=== PATIENT | female | born 1980 | race Caucasian/White ===

== ENCOUNTER 2025-04-22 18:40 | Emergency (ER) | payer MEDICAID ==
[~2025-04-22] VITALS: Ht 167.6 cm; Wt 88.0 kg
[2025-04-22 18:43] VITALS: O2SAT 100
[2025-04-22] MEDS: DIPHENHYDRAMINE 50MG/ML VIAL IV ONE (19:30)
[2025-04-22] MEDS: ONDANSETRON HCL 4MG/2ML INJ IV ONE (19:30)
[2025-04-22] MEDS: SODIUM CHLORIDE 0.9% 1,000 ML IV ONE (19:30)
[2025-04-22] MEDS: KETOROLAC 15MG/ML VIAL IV ONE (19:30)
[2025-04-22 20:22] LABS: BASOPHILS % 0.4 % (0.0-2.0); EOSINOPHILS % 0.3 % (0.0-5.0); HEMATOCRIT. 38.9 % (36.0-48.0); HEMOGLOBIN. 13.1 g/dL (12.0-16.0); LYMPHOCYTES % 17.4 % (20.0-50.0); MEAN PLATELET VOLUME 9.1 fl (7.4-10.4); MONOCYTES % 7.6 % (2.0-8.0); NEUTROPHILS % 74.3 % (40.0-76.0); PLATELET 231 x1000/uL (130-400); RED BLOOD CELL COUNT 4.66 mill/uL (4.2-5.4); RED CELL DISTRIBUTION WIDTH 13.3 % (11.6-14.6)
[2025-04-22 20:31] LABS: CREATININE 0.9 mg/dL (0.6-1.0); UREA NITROGEN BLOOD 10 mg/dL (9-23)
[2025-04-22 20:32] LABS: TROPONIN I HIGH SENSITIVITY 8 ng/L (3.0-34)
[2025-04-22 20:33] LABS: ASPARTATE AMINOTRANSFERASE 23 IU/L (<34); BILIRUBIN DIRECT 0.1 mg/dL (<=3.0); BILIRUBIN TOTAL 0.3 mg/dL (0.1-1.0); PROTEIN TOTAL 7.4 g/dL (6.0-8.3)
[2025-04-22 20:37] LABS: HCG SCREEN NEGATIVE
[2025-04-22 20:38] LABS: INR 1.0
[2025-04-22 21:12] VITALS: BP 136/91; PULSE 88; RESP 18; TEMP 36.9; O2SAT 98
== END 2025-04-22 21:43 | disposition home or self-care (01) ==
LOC: ER 19:03
DX: G43.909 Migraine, unspecified, not intractable, without status migrainosus (principal); R00.2 Palpitations; I10 Essential (primary) hypertension; I16.1 Hypertensive emergency; Z87.59 Personal history of other complications of pregnancy, childbirth and the puerperium
CPT/HCPCS: 99285; 70450; 71045; 80076; 80048; 84703; 85025; 85379; 85610; 85730; 84484; 36415; 93005; J7030